=== PATIENT | male | born 1990 | race Two or more races ===

== ENCOUNTER 2018-03-05 20:41 | Emergency (ER) | payer OTHER ==
[~2018-03-05] VITALS: Ht 188 cm; Wt 83.9 kg
[2018-03-05] MEDS ORDERED: FLURBIPROFEN100 MG (21:17)
== END 2018-03-05 22:06 | disposition home or self-care (01) ==
LOC: ER 20:41
DX: K08.89 Other specified disorders of teeth and supporting structures (principal)